=== PATIENT | male | born 1960 | race Caucasian/White ===

== ENCOUNTER 2017-04-25 07:14 | Day surgery (SDC) | payer BC ==
[2017-04-25] MEDS ORDERED: Lactated Ringers 1,000 ML IV SCH (07:15)
[2017-04-25] MEDS ORDERED: Midazolam 1 MG/ML 2 ML SDV IV ONE (08:50)
[2017-04-25] MEDS ORDERED: Propofol 200 MG/20 ML SDV IV ONE (08:50)
--- NOTE | 2017-04-25 09:38 | PCM.OPNOTE ---
- General Post-Op/Procedure Note Date of Surgery/Procedure: 04/25/17 Operative Procedure(s): c scope with bx Findings: ascending colon polyp x2 descending colon polyp Pre Op Diagnosis: family hx of colon cancer Post-Op Diagnosis: ascending colon polyp x2. descending colon polyp Anesthesia Technique: MAC Primary Surgeon: Barry Puckett Anesthesia Provider: Amish Berumen Pathology: ascending colon polyp x2 descending colon polyp Complications: None Condition: Good Free Text/Narrative:: see dictation
--- NOTE | 2017-04-25 10:03 | OR ---
DATE OF OPERATION: 04/25/2017 SURGEON: Barry Puckett MD PROCEDURE PERFORMED: Colonoscopy with cold forceps biopsy. PREOPERATIVE DIAGNOSIS: Need for colon cancer screening, family history of colon cancer. INDICATIONS FOR PROCEDURE: This is a 56-year-old white male, whose brother was recently diagnosed with colon cancer. He presents now for his initial colonoscopy. DESCRIPTION OF PROCEDURE: After an excellent IV sedation was administered, digital rectal exam was performed. No marked abnormality was noted. The flexible colonoscope was inserted and advanced to the cecum without difficulty. The prep was excellent. The following findings were noted; in the proximal ascending colon a small, 3-mm polyp was biopsied with the cold forceps and sent for permanent. At the distal ascending colon, an additional polyp was encountered and this was biopsied with the cold loop and submitted in a separate container. The transverse colon was unremarkable. The descending colon demonstrated an adenomatous-appearing polyp, which was biopsied with cold forceps. Sigmoid was unremarkable. Rectum and anus were unremarkable. Colon was deflated. Scope was removed. The patient tolerated the procedure and was taken to recovery in good condition. /[id number] /MODL
[2017-04-25 10:59] VITALS: BP 105/50
== END 2017-04-25 10:48 | disposition home or self-care (01) ==
LOC: FB.SDS 07:14
PROVIDERS: ATTEND Surgery
DX: Z12.11 Encounter for screening for malignant neoplasm of colon (principal); D12.2 Benign neoplasm of ascending colon; Z80.0 Family history of malignant neoplasm of digestive organs; Z79.899 Other long term (current) drug therapy
CPT/HCPCS: 45380; 88305; J2250; J2704; J7120